=== PATIENT | female | born 1980 | race Two or more races ===

== ENCOUNTER 2016-10-24 17:47 | Emergency (ER) | payer MEDICAID ==
[~2016-10-24] VITALS: Ht 157.5 cm; Wt 72.6 kg
[~2016-10-24 17:47] MED LIST: IBUP800T24
[2016-10-24 18:05] VITALS: BP 137/91
[2016-10-24] MEDS ORDERED: IBUPROFEN 600 MG TAB PO ONE (20:15)
== END 2016-10-24 20:17 | disposition home or self-care (01) ==
LOC: ER 17:51
DX: S92.534A Nondisplaced fracture of distal phalanx of right lesser toe(s), initial encounter for closed fracture (principal); X58.XXXA Exposure to other specified factors, initial encounter; Y93.89 Activity, other specified; Y99.8 Other external cause status; Y92.89 Other specified places as the place of occurrence of the external cause
CPT/HCPCS: 73660; 99284; L3260

== ENCOUNTER 2018-06-11 19:13 | Emergency (ER) | payer MEDICAID, OTHER ==
[~2018-06-11] VITALS: Ht 154.9 cm; Wt 93.0 kg
[2018-06-11 19:26] VITALS: BP 131/87
[2018-06-11 19:55] LABS: Urine Bacteria NONE SEEN /hpf (None Seen); Urine Blood TRACE /uL (Negative); Urine Mucus FEW (None Seen); Urine Specific Gravity 1.029 (1.001-1.035); Urine WBC 15 /hpf (0 - 5)
[2018-06-11] MEDS: LIDOCAINE 2% (LOCAL ANESTH.) PF 5ml SDV ONE (22:07)
== END 2018-06-11 21:04 | disposition home or self-care (01) ==
LOC: ER 19:13
DX: J06.9 Acute upper respiratory infection, unspecified (principal); J02.9 Acute pharyngitis, unspecified; N39.0 Urinary tract infection, site not specified
CPT/HCPCS: 81001; 81025; 99283; J2001